=== PATIENT | male | born 1995 ===

== ENCOUNTER 2018-03-17 12:49 | Inpatient (IN) | payer SELFPAY ==
[2018-03-17 12:51] VITALS: BMI 33.2
--- NOTE | 2018-03-17 14:25 | ED PDOC ---
HPI: Psych/Substance Abuse Time Seen by Provider: 03/17/18 12:55 Chief Complaint (Nursing): Psychiatric Evaluation Chief Complaint (Provider): Psychiatric Evaluation History Per: Patient, EMS History/Exam Limitations: no limitations Suicide/Self Injury Attempted (Context): None Severity: Moderate Additional Complaint(s): 23 year old male with a past medical history of schizophrenia is brought into the ED by EMS at the request of mobile transport for a psychiatric evaluation. As per EMS, patient got into a verbal argument with his parents this morning, and the parents called 911 because he mentioned that he wanted to "blow up the house". Patient was calm and cooperative at the time, and refused to come to the ED. Patient went back into his room and continued to study, until he heard the door clamp operator come once again, with mobile crisis there once again. Patient states that he takes Seroquel every night, but missed his dose last night because he wanted to hangout with his friend. Patient denies having suicidal ideation, homicidal ideation, and hallucinations. Patient offers no complaints at this time. PMD: None provided. Past Medical History Reviewed: Historical Data, Nursing Documentation, Vital Signs Vital Signs: Last Vital Signs Temp 98.9 F 03/17/18 12:52 Pulse 105 H 03/17/18 12:52 Resp 20 03/17/18 12:52 BP 157/95 H 03/17/18 12:52 Pulse Ox 98 03/17/18 12:52 - Medical History PMH: Schizophrenia - Surgical History Surgical History: No Surg Hx - Family History Family History: States: No Known Family Hx - Social History Current smoker - smoking cessation education provided: No Alcohol: None Drugs: Denies - Home Medications Home Medications: Ambulatory Orders Medication Instructions Recorded Quetiapine Fumarate [Seroquel] 400 mg PO HS 03/17/18 - Allergies Allergies/Adverse Reactions: Allergies Allergy/AdvReac Type Severity Reaction Status Date / Time No Known Allergies Allergy Verified 03/17/18 12:53 Review of Systems ROS Statement: Except As Marked, All Systems Reviewed And Found Negative Psych: Negative for: Suicidal ideation, Other (homicidal ideation, hallucinations) Physical Exam - Reviewed Nursing Documentation Reviewed: Yes Vital Signs Reviewed: Yes - Physical Exam Appears: Positive for: Well, Non-toxic, No Acute Distress Head Exam: Positive for: ATRAUMATIC, NORMOCEPHALIC Skin: Positive for: Normal Color, Warm, Dry Eye Exam: Positive for: Normal appearance Cardiovascular/Chest: Positive for: Regular Rate, Rhythm Respiratory: Positive for: Normal Breath Sounds Neurologic/Psych: Positive for: Alert, Oriented (3x) - Laboratory Results Result Diagrams: 03/17/18 14:20 03/17/18 14:20 - ECG ECG Rhythm: Positive for: Sinus Rhythm. Negative for: ST/T Changes Rate: 74 O2 Sat by Pulse Oximetry: 98 (RA) Pulse Ox Interpretation: Normal - Radiology X-Ray: Viewed By Me, Read By Radiologist X-Ray Interpretation: No Acute Disease Medical Decision Making Medical Decision Makin:55 Initial impression: 23 year old male in the ED for a psychiatric evaluation. Initial plan: -- Crisis evaluation -- 1:1 observation -- CT head w/o contrast -- XRay chest -- EKG -- alcohol serum -- CMP -- drug screen -- CBC w/ diff -- urinalysis -- reevaluation EKG: sinus rhythm at 74 beats per minute. No ST/T wave changes 14:33 XRay chest read and reviewed by radiologist Findings: No active diseases. Scribe Attestation: Documented by Virginia Calderon, acting as a scribe for Munir Pham Provider Scribe Attestation: All medical record entries made by the Scribe were at my direction and personally dictated by me. I have reviewed the chart and agree that the record accurately reflects my personal performance of the history, physical exam, medi baljeet decision making, and the department course for this patient. I have also personally directed, reviewed, and agree with the discharge instructions and disposition. Disposition - Clinical Impression Clinical Impression: Schizophrenia - Patient ED Disposition Is Patient to be Admitted: Yes - Disposition Disposition Time: 13:07 Condition: STABLE
[2018-03-17 14:29] LABS: BASO % 0.4 % (0.0-2.0); HEMOGLOBIN 14.8 g/dL (12.0-18.0); LYMPH # 0.9 K/uL (1.0-4.3); LYMPH % 11.4 % (20.0-40.0); MEAN CELL VOLUME 87.1 fl (80.0-94.0); MEAN CORPUSCULAR HEMOGLOBIN 28.7 pg (27.0-31.0); MEAN PLATELET VOLUME 7.8 fl (7.2-11.7); MONO # 0.4 K/uL (0.0-0.8); MONO % 5.8 % (0.0-10.0); NEUT # 6.2 K/uL (1.8-7.0); NEUT % 82.4 % (50.0-75.0); NRBC % 0.1 % (0.0-0.0); RBC 5.16 Mil/uL (4.40-5.90); RED CELL DISTRIBUTION WIDTH 13.8 % (11.5-14.5); WHITE BLOOD COUNT 7.5 K/uL (4.8-10.8)
[2018-03-17 14:39] LABS: BLOOD UREA NITROGEN 9 mg/dl (9-20); CALCIUM 9.7 mg/dL (8.4-10.2); GFR NON-AFRICAN AMERICAN > 60
[2018-03-17 14:40] LABS: ALB/GLOB RATIO 1.3 (1.0-2.1); ALBUMIN 4.6 g/dL (3.5-5.0); ALT/SGPT 62 U/L (21-72); AST/SGOT 32 U/L (17-59)
--- NOTE | 2018-03-17 15:25 | RAD ---
Date of service: 03/17/2018 HISTORY: clearance COMPARISON: No prior. FINDINGS: LUNGS: No active pulmonary disease. PLEURA: No significant pleural effusion identified, no pneumothorax apparent. CARDIOVASCULAR: No aortic atherosclerotic calcification present. Normal cardiac size. No pulmonary vascular congestion. OSSEOUS STRUCTURES: No significant abnormalities. VISUALIZED UPPER ABDOMEN: Normal. OTHER FINDINGS: None. IMPRESSION: No active disease.
[2018-03-17 16:26] LABS: URINE BILIRUBIN NEGATIVE (NEGATIVE); URINE BLOOD NEGATIVE (NEGATIVE); URINE CLARITY SLIGHTY-CLOUDY (Clear); URINE COLOR YELLOW (YELLOW); URINE GLUCOSE (UA) NEG (NEGATIVE); URINE LEUKOCYTE ESTERASE NEG Leu/uL (Negative); URINE PROTEIN NEGATIVE (NEGATIVE); URINE UROBILINOGEN 0.2-1.0 mg/dL (0.2-1.0)
[2018-03-17 16:31] LABS: BARBITURATES, UR NEGATIVE (NEGATIVE); BENZODIAZEPINES, UR NEGATIVE (NEGATIVE); OPIATES, UR NEGATIVE (NEGATIVE); PHENCYCLIDINE, UR NEGATIVE (NEGATIVE)
[2018-03-17] MEDS ORDERED: Magnesium Hydroxide Susp 30 ml UD PO PRN (17:27)
[2018-03-17] MEDS ORDERED: DiphenhydrAMINE 50 mg/ml Inj IM PRN (17:27)
[2018-03-17] MEDS ORDERED: Alum-Mag Hydrox-Simethicone Susp (30 mL) PO PRN (17:27)
[2018-03-17] MEDS ORDERED: Pneumococcal 23-Valent Vaccine IM ONE (19:08)
--- NOTE | 2018-03-17 19:40 | PCM.BM ---
<Camryn Rivera Tina - Last Filed: 03/17/18 19:38> Treatment assets and liabiliti Patient Assests: cooperative, self-reliant, ADL independent, physically healthy, good support system Patient Liabilities: relationship conflicts, substance abuse, other - Milieu Protocol Maintain good personal hygiene: daily Encourage regular showers, daily Remind patient to perform daily oral care, daily Assist patient to perform ADL's Conduct patient checks and document Observation sheet: Q15 minutes Maintain personal safety: every shift Educate patient to report safety concerns to staff, every shift Monitor environment for contraband/sharps Medication safety: Monitor for expected outcome, potential side effects: daily, Assess barriers to learning: daily, Assess readiness for medication education: daily <Shad Anderson - Last Filed: 03/19/18 16:24> Family Contact Family involvement: Family/SO is involved Family contact: Patient agrees to contact, Family has been contacted by patient, Telephone contact initiated by staff Family contact name: Steven - Father Family contacted how many times per week?: 2 Family contact comment: Flatbed Truck Driver spoke with pt's father to explain screening process and acceptance [place] [facility] [place] once paperwork is completed. Pt's father asked if pt could remain at [facility], however, to ensure proper stabilization it is best if pt be treated on a longer-term basis. [phone] - Goals for Treatment Patient goals for treatment: Pt offered no goals for treatment as he lacks insight and is requesting to be discharged so he can attend college classes to better himself. Pt is floridly deluisional and lacking insight and the ability to reality test. Discharge/Continuing Care - Education Needs Education Needs: Family Medication, Family Anger Management skills, Family Aftercare Safety Plan, Patient Medication, Patient Anger Management skills, Patient Aftercare Safety Plan - Discharge Discharge Criteria: Tolerates medication w/o severe side effects, Free of Suicidal thoughts, Free of paranoid thoughts, Free of agitation, Normal sleep pattern, Ability to care for self, Reduction of target symptoms, Other Discharge to:: With Family - Treatment Team Participation Patient/Family/SO Statement: 03/19/18 16:23 Pt seen in treatment team on 03/19/18. Staff answered questions regarding voluntary v. involuntary treatment and projected timeline for transfer to [facility]. Pt became very upset and tearful regarding the unknowns surrounding his treatment and staff offered support and normalization. Discussed with Family/SO: Yes Was Patient/Family/SO present at Treatment Team Meeting: Yes
[2018-03-17 22:32] VITALS: O2SAT 98
[2018-03-18 08:12] LABS: T4 7.55 ug/dl (5.5-11.0)
[2018-03-18] MEDS ORDERED: Influenza Vaccine (5 YR UP)/PF 60 MCG/0.5 ML SYR IM ONE (09:00)
[2018-03-18 09:03] VITALS: RESP 19
[2018-03-18] MEDS ORDERED: OLANZapine 5 mg Disintegrating Tab PO STA (10:38)
--- NOTE | 2018-03-18 14:48 | PCM.PSYCH ---
Initial Psychiatric Evaluation - Initial Psychiatric Evaluation Type of Admission: Voluntary History of Present Illness and Precipitating Events: pt is 23 ys old male with previous diagnosis of schizoaffective disorder,brought to ER by police due to disorganized behavior and physically aggressive behavior towards parents pt has been recently released from [facility], non compliant with medications , has been increasingly paranoid believing his family is trying to poison his food,pt also has been irritable angry and threatening to hurt his father on evaluation, patient floridly psychotic presenting with paranoid denusions towards family members, internally preoccupied and sexually preoccupied, presenting with thought blocking denied current command hallucinations, denied suicidal or homicidal ideation collateral information Collateral obtained from Pts family, mother, father and sister ([phone], ). As per family, Pt was released from [facility] on 05/13/2017. They report that Pt was committed to involuntary admission, however, parents were manipulated by Pt and begged the psychiatrist to cancel the admission so they let them take Pt home because Pt promised that he would take his medications and go to therapy. As per Pts family, Pt has an extensive psychiatric hx beginning when Pt was 12 and he was admitted to [facility] secondary to a suicide attempt by cutting wrist. Pts family reported that Pt was in ongoing therapy and medication with [facility] for years and it was not effective so they decided to take Pt to the [facility]. When Pt was in in the [facility], he was treated by a psychiatrist and was stabilized. Pt then did not take medication for 5 years subsequently resulting in exacerbated aggressive behaviors. During this time, Pt was making holes in aquino, breaking things and very verbally aggressive towards family. Most recently, prior to his admission 03/05/2018 to [facility], Pt was paranoid, aggressive and delusional. Pt was convinced by his sister to get treatment for his anger and Pt agreed and took an uber to the hospital. As per family, Pt has been saying that his father is the tear drop rapist. Pt believes that his family is trying to poison him, that his sister is not really his sister, that the neighbors are listening through the aquino and that his family members are not who they say they are. Pt has been threatening to kill his family and chop up his father because he bel ieves he is a rapist. Pt called his cousin Harry ([phone]) and told him that his father has been raping his sister and is the tear drop racist. When questioned by his cousin about the face tattoos that the real rapist has, Pt reported that his father takes the tattoos off and puts them back on. Pt also told his cousin that he was going to kill his entire family by burning down the house. Pts cousin then called his family and told them what happened. Yesterday, Pts half sister, Radha ([phone]) came over and he shared the same stories with her and told her that if she told anyone, Pt would kill the entire family. She was unable to sleep the entire night because of the threats. Pts family reports that Pt often becomes verbally aggressive and gets really close to their face and yells at them. Today, Pt blocked his sister and his mother from leaving the house, took away their car keys and demanded that they admit that they have been trying to poison him. His mother and sister took a spare set of keys and were able to make it out of the house and called mobile crisis. They report Pt has not been sleeping and spends the entire night pacing. He also has been hoarding food in his room and blocking his door with a dresser so no one comes in. They report family members have stopped visiting because they are scared of Pt. At this time, Pts family report Pt has been making suicidal and homicidal statements frequently. Pts family is very fearful and believe Pt is an imminent danger to self and others. Pts family have been unable to sleep due to the ongoing threats from Pt. Pts family report that Pt is very manipulative and has been hiding his medication, he also believes that the medication shot he is supposed to get is poisonous and he refuses to take it. Pts mother found pills in his room of [facility] that he has been spitting out. Current Medications: Active Medications Generic Name Dose Route Start Last Admin Trade Name Freq PRN Reason Stop Dose Admin Acetaminophen 650 mg 03/17/18 17:27 Tylenol 325mg Tab PO Q4 PRN pain Al Hydrox/Mg Hydrox/Simethicone 30 ml 03/17/18 17:27 Maalox Plus 30 Ml PO Q4 PRN Dyspepsia Diphenhydramine HCl 50 mg 03/17/18 17:27 Benadryl IM Q6 PRN Extrapyramidal S/S Unable PO Diphenhydramine HCl 50 mg 03/17/18 17:34 Benadryl PO Q6 PRN EPS/Dystonic reaction Diphenhydramine HCl 50 mg 03/17/18 17:35 03/17/18 21:05 Benadryl PO 50 mg HS PRN Administration Sleep Haloperidol 5 mg 03/17/18 17:27 Haldol PO Q4 PRN Agitation Haloperidol Lactate 5 mg 03/17/18 17:27 Haldol IM Q4 PRN Agitation, Unable to Take PO Lorazepam 2 mg 03/17/18 17:27 Ativan IM Q4 PRN Anxiety/Agitation,Unable PO Lorazepam 2 mg 03/17/18 17:37 Ativan PO Q8 PRN Anxiety Magnesium Hydroxide 30 ml 03/17/18 17:27 Milk Of Magnesia PO HS PRN Constipation Olanzapine 10 mg 03/18/18 22:00 Zyprexa Zydis PO HS JAIDEN Olanzapine 5 mg 03/19/18 09:00 Zyprexa Zydis PO DAILY JAIDEN Past Psychiatric History - Past Psychiatric History Explanation of prior treatment: hospitalization at age 12, last was at [facility] , hx of non compliance History of ETOH/Drug Use: cannabis use Pertinent Medical Hx (Current Medical&Sleep Prob, Allergies): Allergies Allergy/AdvReac Type Severity Reaction Status Date / Time No Known Allergies Allergy Verified 03/17/18 12:53 Quetiapine Fumarate [Seroquel] 400 mg PO HS 03/17/18 Mental Status Examination - Personal Presentation Personal Presentation: Looks stated age - Affect Affect: Constricted - Motor Activity Motor Activity: Psychomotor Agitation - Reliability in Providing Information Reliability in Providing Information: Poor, due to alteration in thoughts, Poor, due to altered mood - Speech Speech: Disorganized - Mood Mood: Anxious, Homicidal Ideation Additional comments: homicidal thoughts towards his father - Formal Thought Process Formal Thought Process: Hallucinations, Delusions, Paranoia - Hallucinations/Delusions Hallucinations: Auditory - Obsessions/Compulsions Obsessions: No Compulsions: No - Cognitive Functions Orientation: Person, Place Attention/Concentration: Easily distracted Abstract Thinking: Smoaks Judgement: Imparied, as evidence by: Poor judgement, Imparied, as evidence by: Lack of insight into illness - Risk Risk: Homicidal, Elopement, Diminished functioning - Strength & Assets Inventory Strength & Assets Inventory: Family support - Limitations Additional comments: poor compliance DSM 5 DX - DSM 5 DSM 5 Diagnosis: schizoaffective disorder bipolar type - Recommended/Plan of Treatment Treatment Recommendations and Plan of Treatment: start zyprexa zydis 5mg daily and 10mg qhs encourage medication insurance compliance analyst for psychopharmacological effects and side effect profile
--- NOTE | 2018-03-18 18:44 | CARD ---
APPROVED REPORT Date of service: 03/17/2018 EKG Measurement Heart [id number] <Conclusion> Sinus rhythm with marked sinus arrhythmia Otherwise normal ECG
--- NOTE | 2018-03-18 20:26 | CP.PCM.CON ---
History of Present Illness - History of Present Illness History of Present Illness: 23 yo male brought in to psyche unit because disorganized and aggressive behaviour. Review of Systems - Review of Systems All systems: reviewed and no additional remarkable complaints except (aside from those mentioned above, 12 point system review were negative by me) Past Patient History - Tetanus Immunizations Tetanus Immunization: Unknown - Past Medical History & Family History Past Medical History?: Yes - Past Social History Smoking Status: Heavy Smoker > 10 Cigarettes Daily Chewing Tobacco Use: No Cigar Use: No Alcohol: None Drugs: Denies - CARDIAC Hx Cardiac Disorders: No Hx Hypertension: No - PULMONARY Hx Tuberculosis: No - NEUROLOGICAL HX Cerebrovascular Accident: No Hx Seizures: No - HEMATOLOGICAL/ONCOLOGICAL Hx Cancer: No Hx Human Immunodeficiency Virus (HIV): No - GENITOURINARY/GYNECOLOGICAL Hx Sexually Transmitted Disorders: No - PSYCHIATRIC Hx Schizophrenia: Yes Meds Allergies/Adverse Reactions: Allergies Allergy/AdvReac Type Severity Reaction Status Date / Time No Known Allergies Allergy Verified 03/17/18 12:53 - Medications Medications: Current Medications Acetaminophen (Tylenol 325mg Tab) 650 mg PO Q4 PRN PRN Reason: pain Al Hydrox/Mg Hydrox/Simethicone (Maalox Plus 30 Ml) 30 ml PO Q4 PRN PRN Reason: Dyspepsia Diphenhydramine HCl (Benadryl) 50 mg IM Q6 PRN PRN Reason: Extrapyramidal S/S Unable PO Diphenhydramine HCl (Benadryl) 50 mg PO Q6 PRN PRN Reason: EPS/Dystonic reaction Diphenhydramine HCl (Benadryl) 50 mg PO HS PRN PRN Reason: Sleep Last Admin: 03/17/18 21:05 Dose: 50 mg Haloperidol (Haldol) 5 mg PO Q4 PRN PRN Reason: Agitation Haloperidol Lactate (Haldol) 5 mg IM Q4 PRN PRN Reason: Agitation, Unable to Take PO Lorazepam (Ativan) 2 mg IM Q4 PRN PRN Reason: Anxiety/Agitation,Unable PO Lorazepam (Ativan) 2 mg PO Q8 PRN PRN Reason: Anxiety Magnesium Hydroxide (Milk Of Magnesia) 30 ml PO HS PRN PRN Reason: Constipation Olanzapine (Zyprexa Zydis) 10 mg PO HS JAIDEN Olanzapine (Zyprexa Zydis) 5 mg PO DAILY JAIDEN Physical Exam - Constitutional Appears: No Acute Distress - Head Exam Head Exam: ATRAUMATIC - Eye Exam Eye Exam: absent: Scleral icterus - ENT Exam ENT Exam: Mucous Membranes Moist - Neck Exam Neck exam: Negative for: Meningismus - Respiratory Exam Respiratory Exam: absent: Rales, Rhonchi, Wheezes, Respiratory Distress - Cardiovascular Exam Cardiovascular Exam: REGULAR RHYTHM, +S1, +S2 - GI/Abdominal Exam GI & Abdominal Exam: Soft. absent: Tenderness - Rectal Exam Rectal Exam: Deferred - Extremities Exam Extremities exam: Negative for: pedal edema - Back Exam Back exam: NORMAL INSPECTION - Neurological Exam Neurological exam: Alert, Oriented x3 - Psychiatric Exam Psychiatric exam: Normal Affect - Skin Skin Exam: Dry, Intact Results - Vital Signs Recent Vital Signs: Last Vital Signs Temp 97.5 F L 03/18/18 09:02 Pulse 87 03/18/18 09:02 Resp 19 03/18/18 09:02 BP 147/87 03/18/18 09:02 Pulse Ox 98 03/17/18 22:32 - Labs Result Diagrams: 03/17/18 14:20 03/17/18 14:20 Labs: Laboratory Results - last 24 hr 03/18/18 03/18/18 07:35 07:35 Thyroxine (T4) 7.55 TSH 3rd Generation 1.16 RPR Nonreactive Assessment & Plan (1) Disorganized behavior Status: Acute Comment: psyche is managing.
[2018-03-18] MEDS ORDERED: OLANZapine 10 mg Disintegrating Tab PO SCH (22:00)
[2018-03-19] MEDS ORDERED: OLANZapine 5 mg Disintegrating Tab PO SCH (09:00)
--- NOTE | 2018-03-19 12:39 | PCM.PYCHDC ---
Mental Status Examination - Mental Status Examination Orientation: Person, Situation Memory: Intact Mood: Anxious Affect: Constricted Speech: Soft Attention: WNL Concentration: WNL Association: Loose Formal Thought Process: Hallucinations, Delusions, Paranoia, Loosening of associations Description of patient's judgement and insight: poor insight and judgment Suicidal Ideation: No Current Homicidal Ideation?: No Discharge Summary - Discharge Note Reason for Hospitalization: pt is 23 ys old male with previous diagnosis of schizoaffective disorder,brought to ER by police due to disorganized behavior and physically aggressive behavior towards parents pt has been recently released from [facility], non compliant with medications , has been increasingly paranoid believing his family is trying to poison his food,pt also has been irritable angry and threatening to hurt his father on evaluation, patient floridly psychotic presenting with paranoid denusions towards family members, internally preoccupied and sexually preoccupied, presenting with thought blocking denied current command hallucinations, denied suicidal or homicidal ideation collateral information Collateral obtained from Pts family, mother, father and sister ([phone], ). As per family, Pt was released from [facility] on 05/13/2017. They report that Pt was committed to involuntary admission, however, parents were manipulated by Pt and begged the psychiatrist to cancel the admission so they let them take Pt home because Pt promised that he would take his medications and go to therapy. As per Pts family, Pt has an extensive psychiatric hx beginning when Pt was 12 and he was admitted to [facility] secondary to a suicide attempt by cutting wrist. Pts family reported that Pt was in ongoing therapy and medication with [facility] for years and it was not effective so they decided to take Pt to the [facility]. When Pt was in in the [facility], he was treated by a psychiatrist and was stabilized. Pt then did not take medication for 5 years subsequently resulting in exacerbated aggressive behaviors. During this time, Pt was making holes in aquino, breaking things and very verbally aggressive towards family. Most recently, prior to his admission 03/05/2018 to [facility], Pt was paranoid, aggressive and delusional. Pt was convinced by his sister to get treatment for his anger and Pt agreed and took an uber to the hospital. As per family, Pt has been saying that his father is the tear drop rapist. Pt believes that his family is trying to poison him, that his sister is not really his sister, that the neighbors are listening through the aquino and that his family members are not who they say they are. Pt has been threatening to kill his family and chop up his father because he believes he is a rapist. Pt called his cousin Harry ([phone]) and told him that his father has been raping his sister and is the tear drop racist. When questioned by his cousin about the face tattoos that the real rapist has, Pt reported that his father takes the tattoos off and puts them back on. Pt also told his cousin that he was going to kill his entire family by burning down the house. Pts cousin then called his family and told them what happened. Yesterday, Pts half sister, Radha ([phone]) came over and he shared the same stories with her and told her that if she told anyone, Pt would kill the entire family. She was unable to sleep the entire night because of the threats. Pts family reports that Pt often becomes verbally aggressive and gets really close to their face and yells at them. Today, Pt blocked his sister and his mother from leaving the house, took away their car keys and demanded that they admit that they have been trying to poison him. His mother and sister took a spare set of keys and were able to make it out of the house and called mobile crisis. They report Pt has not been sleeping and spends the entire night pacing. He also has been hoarding food in his room and blocking his door with a dresser so no one comes in. They report family members have stopped visiting because they are scared of Pt. At this time, Pts family report Pt has been making suicidal and homicidal statements frequently. Pts family is very fearful and believe Pt is an imminent danger to self and others. Pts family have been un able to sleep due to the ongoing threats from Pt. Pts family report that Pt is very manipulative and has been hiding his medication, he also believes that the medication shot he is supposed to get is poisonous and he refuses to take it. Pts mother found pills in his room of [facility] that he has been spitting out. Laboratory Data: Abnormal Lab Results 03/18/18 07:35 [facility] Nonreactive Consultations:: List each consultation separately and include: 1. Reason for request. 2. Findings. 3. Follow-up Summary of Hospital Course include:: 1. Description of specific treatment plan utilized for patients during their course of treatmen. 2. Summarize the time- course for resolution of acute symptoms and/or regressed behaviors. 3. Describe issues identified and worked on during hospitalization. 4. Describe medication utilized. 5. Describe medical problems identified and treated. 6. Reassessment of suicide risk Summary of Hospital Course: pt on admission was floridly psychotic presenting with paranoid delusions towards family members, internally preoccupied and sexually preoccupied, presenting with thought blocking, internally preoccupied, argumentative about medications, showing no insight into illness, pt signed 48 hour notice requesting to be discharged pt at current mental status was danger to self and others, pt [place] [facility] [place] for [place] admission for further stabilization - Final Diagnosis (DSM 5) Condition upon Discharge: STABLE DSM 5: schizoaffective disorder bipolar type Disposition: DISCHARGE TO PSYCH HOSPITAL Follow-up Treatment Plan: start zyprexa zydis 5mg daily and 10mg qhs encourage medication manager of compliance for psychopharmacological effects and side effect profile - Antipsychotic Medications Pt discharged on 2 or more routine antipsychotic medications: No
[2018-03-19 13:33] VITALS: BP 130/91; PULSE 90; TEMP 98.2
== END 2018-03-19 14:13 | DRG 885 ==
LOC: H.ER 12:49 → H.ERHOLD 16:34 → H.PSYCH 17:09
PROVIDERS: ADMIT Psychiatry & Neurology Psychiatry; ATTEND Psychiatry & Neurology Psychiatry
PROC: GZ3ZZZZ Medication Management (ICD-10-PCS; principal; 2018-03-17)
PROC: GZHZZZZ Group Psychotherapy (ICD-10-PCS; 2018-03-17)
PROC: GZ56ZZZ Individual Psychotherapy, Supportive (ICD-10-PCS; 2018-03-17)
DX: F25.0 Schizoaffective disorder, bipolar type (principal); Z91.14 Patient's other noncompliance with medication regimen; Z91.19 Patient's noncompliance with other medical treatment and regimen; F17.210 Nicotine dependence, cigarettes, uncomplicated